=== PATIENT | female | born 1980 | race Caucasian/White ===

== ENCOUNTER 2016-06-21 01:02 | Emergency (ER) | payer OTHER ==
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
--- NOTE | ~2016-06-21 | EKG ---
PATIENT: KAMINI STEVENS UNIT #: [id number] Ventricular Rate: 76 BPM Atrial Rate: 76 BPM P-R Interval: 128 ms QRS Duration: 76 ms Q-T Interval: 384 ms QTC Calculation(Bezet): 432 ms P [place]: 50 degrees Calculated R [place]: 67 degrees Calculated T [place]: 60 degrees Diagnosis Line: Sinus rhythm with marked sinus arrhythmia Diagnosis Line: Otherwise normal ECG Diagnosis Line: Diagnosis Line: Confirmed by SALEEM ROMAN MD ([id number]) on Diagnosis Line: 06/21/2016 8:02:28 PM INTERPRETING MD: SUSANNA
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
[~2016-06-21 01:02] MED LIST: CLARITIN10 M1 PO; LAXATIVE; MELATONIN3 MG PO; MICRONOR PO; MULTIPLE VITAMI1 T11 PO; ORTHO MICRONO0.35 MG PO; PERCOCET 5-3251 TAB PO; VALERIAN ROOT100 MG PO
== END 2016-06-21 03:00 | disposition home or self-care (01) ==
LOC: CED 01:02
DX: S22.20XA Unspecified fracture of sternum, initial encounter for closed fracture (principal); S80.11XA Contusion of right lower leg, initial encounter; S20.229A Contusion of unspecified back wall of thorax, initial encounter; S30.1XXA Contusion of abdominal wall, initial encounter; V89.2XXA Person injured in unspecified motor-vehicle accident, traffic, initial encounter; Y92.410 Unspecified street and highway as the place of occurrence of the external cause
CPT/HCPCS: 70450; 71250; 72125; 84703; 93005; 99284